=== PATIENT | male | born 1950 | race Two or more races ===

== ENCOUNTER 2019-08-25 15:01 | Inpatient (IN) | payer MEDICARE, BC ==
[~2019-08-25] VITALS: Ht 180.3 cm; Wt 84.1 kg
[2019-08-25 15:50] LABS: Basophils # (auto) 0 10 ^3/uL (0-0.2); Basophils % (auto) 0.9 % (0.0-2.0); Eosinophils # (auto) 0.2 10 ^3/uL (0-0.8); Monocytes # (auto) 0.5 10 ^3/uL (0-1.3); Platelet Count (auto) 76 10^3/uL (140-450); Red Blood Cells 2.08 10^6/uL (4.5-5.90); White Blood Cell 3.8 10^3/uL (4.4-10.8)
[2019-08-25 15:53] LABS: Eosinophils % (auto) 4.3 % (0.0-7.0); Lymphocytes % (auto) 22.5 % (10.0-50.0); Monocytes % (auto) 12.2 % (0.0-12.0); Neutrophils % (auto) 60.1 % (37.0-80.0)
[2019-08-25 15:56] LABS: Lymphocytes # (auto) 0.8 10 ^3/uL (0.4-5.4); Neutrophils # (auto) 2.3 10 ^3/uL (1.6-8.6)
[2019-08-25 15:57] LABS: Hematocrit 18.3 % (41.0-53.0); Mean Corpuscular Hemoglobin 29.9 pg (28.0-32.0)
[2019-08-25 15:58] LABS: Red Cell Distribution Width 20.8 % (11.8-14.3)
[2019-08-25 16:00] LABS: Hemoglobin 6.2 g/dL (13.5-17.5)
[2019-08-25 16:08] LABS: Albumin 2.9 g/dL (3.4-5.0); Calcium 7.5 mg/dL (8.5-10.1); Potassium 4.1 mmol/L (3.5-5.1)
[2019-08-25 16:11] LABS: Magnesium 2.7 mg/dL (1.6-2.6)
[2019-08-25 16:12] LABS: INR 1.13 (0.9-1.15); Partial Thromboplastin Time 30.5 sec (23.64-32.05)
[2019-08-25 16:15] LABS: BUN/Creatinine Ratio 25.7; Bilirubin, Total 0.5 mg/dL (0.2-1.0); Total Protein 7.3 g/dL (6.4-8.2)
[2019-08-25] MEDS ORDERED: SODIUM CHLORIDE 0.9% 3,000 ML IV ONE (16:30)
[2019-08-25] MEDS ORDERED: AZITHROMYCIN 500MG/ 250ML 250 ML IV ONE (17:00)
[2019-08-25 18:29] LABS: Lactic Acid w/Reflex 2.4 mmol/L (0.4-2.0)
[2019-08-25] MEDS ORDERED: MORPHINE SULF INJ 2 MG/ML SYRINGE 1ML IV PRN (18:45)
[2019-08-25] MEDS ORDERED: NITROGLYCERIN 0.4 MG SL TAB SL PRN (18:45)
[2019-08-25] MEDS ORDERED: levoFLOXacin 500MG 100 ML IV ONE (19:00)
[2019-08-25] MEDS ORDERED: PANTOPRAZOLE 40 MG/10 ML VIAL INJ IV ONE (19:00)
[2019-08-25] MEDS ORDERED: ONDANSETRON HCL 4 MG/2 ML VIAL IV PRN (19:00)
[2019-08-25 20:00] VITALS: BP 98/56
--- NOTE | 2019-08-25 20:09 | NUR ---
Telemetry admit from ER GUEARCHRIS NAILS admitted to Telemetry unit after SBAR received. Patient oriented to Blanca Davis, primary RN, unit, room, bed, and unit policies regarding patient care and visiting hours. Patient now on continuous telemetry monitoring, tele box # [id number] and telemetry reading on arrival to unit is SR. Patient placed on bedside oxygen, weighed by bedscale and encouraged to call if they need something. All questions and concerns addressed, patient verbalized understanding.
[2019-08-25] MEDS ORDERED: [UNRECOGNIZED DRUG - CODE] PO (21:07)
[2019-08-25] MEDS ORDERED: AMIO200T4 PO (21:07)
[2019-08-25] MEDS ORDERED: CYAN100056 PO (21:07)
[2019-08-25] MEDS ORDERED: ATO40T PO (21:07)
[2019-08-25] MEDS ORDERED: LEUP1INJ IJ (21:07)
[2019-08-25] MEDS ORDERED: INSLISPI SC (21:07)
[2019-08-25] MEDS ORDERED: PREG200C19 PO (21:07)
[2019-08-25] MEDS ORDERED: DOCU-94 PO (21:07)
[2019-08-25] MEDS ORDERED: TORS20TA20 PO (21:07)
[2019-08-25] MEDS ORDERED: IVAB1.7T PO (21:07)
[2019-08-25] MEDS ORDERED: [UNRECOGNIZED DRUG - CODE] PO (21:07)
[2019-08-25] MEDS ORDERED: CHOL20007 PO (21:07)
[2019-08-25] MEDS ORDERED: CALCTAB25 PO (21:07)
[2019-08-25] MEDS ORDERED: LIDO2SOL18 MT (21:07)
[2019-08-25] MEDS ORDERED: METO2.5T11 PO (21:07)
[2019-08-25] MEDS ORDERED: TRAM50TA2 PO (21:07)
[2019-08-25] MEDS ORDERED: PREG75CA PO (21:07)
[2019-08-25] MEDS ORDERED: DENOINJ SC (21:07)
--- NOTE | 2019-08-25 21:20 | NUR ---
IV insertion IV access obtained, via clean sterile technique by inserting 22 gauge catheter at right upper arm. IV secured properly. No trauma to site. Patient tolerated well.
[2019-08-25 22:00] VITALS: BP 98/56
[2019-08-25] MEDS: metroNIDAZOLE 500MG/100ML 100 ML IV SCH (22:00)
[2019-08-25 22:21] VITALS: BP 90/50
[2019-08-25] MEDS: SODIUM CHLORIDE 0.9% 1,000 ML IV SCH (22:36)
[2019-08-25] MEDS: traMADol HCL 50 MG TAB PO PRN (22:37)
[2019-08-25] MEDS: PANTOPRAZOLE 40 MG TAB PO SCH (22:37)
[2019-08-25 22:49] VITALS: BP 98/62
--- NOTE | 2019-08-25 22:50 | NUR ---
Blood transfusion Patient tolerating well no complaints at this time. Will continue to monitor.
[2019-08-25 23:33] VITALS: BP 104/62
[2019-08-26] VITALS (19 sets, daily range): BP systolic 86–115; BP diastolic 42–70
--- NOTE | 2019-08-26 02:12 | NUR ---
Wound picture Wound noted to right forearm, skin tear scabbed over. Old bandage removed and wound cleansed with wound cleanser, patted dry. Wound is not draining/bleeding at this time, left open to air. Wound measured at 1 cm, picture taken but wound camera had black screen.
[2019-08-26] MEDS: SODIUM CHLORIDE 0.9% 1,000 ML IV SCH ×2 (03:23→10:54)
[2019-08-26] MEDS: metroNIDAZOLE 500MG/100ML 100 ML IV SCH (05:45)
[2019-08-26] MEDS: traMADol HCL 50 MG TAB PO PRN ×2 (05:57→17:39)
[2019-08-26 06:02] LABS: Hematocrit 19.8 % (41.0-53.0); Mean Corpuscular Hemoglobin 29.3 pg (28.0-32.0); Mean Corpuscular Hgb Conc. 32.9 g/dL (32.0-36.0); Mean Corpuscular Volume 88.9 fL (80.0-100.0); Platelet Count (auto) 61 10^3/uL (140-450); Red Blood Cells 2.23 10^6/uL (4.5-5.90); White Blood Cell 4.3 10^3/uL (4.4-10.8)
--- NOTE | 2019-08-26 06:10 | NUR ---
Urine sent Urine sample given to fish farm laborer per MD order.
[2019-08-26 06:12] LABS: Red Cell Distribution Width 20.1 % (11.8-14.3)
[2019-08-26 06:14] LABS: Hemoglobin 6.5 g/dL (13.5-17.5)
[2019-08-26 06:15] LABS: Basophils % (manual) 0 (0.0-2.0); Blast Cells 0; Metamyelocytes % 0; Myelocytes % 0; Promyelocytes % 0; Reactive Lymphocytes 0
[2019-08-26 06:18] LABS: Potassium 4.3 mmol/L (3.5-5.1)
[2019-08-26 06:32] LABS: Albumin 2.7 g/dL (3.4-5.0); BUN/Creatinine Ratio 28.4; Bilirubin, Total 0.5 mg/dL (0.2-1.0); Calcium 6.8 mg/dL (8.5-10.1); Total Protein 6.6 g/dL (6.4-8.2)
--- NOTE | 2019-08-26 07:30 | NUR ---
OPENING NOTE PATIENT RECEIVING BLOOD TRANSFUSION, RUNNING AT 75ML/HR. PATIENT TOLERATING WELL AND RESTING IN BED. WILL CONTINUE TO MONITOR
[2019-08-26 07:33] LABS: Band Neutrophils % (manual) 2; Eosinophils % (manual) 4 (0-7); Lymphocytes % (manual) 26 (10.0-50.0); Monocytes % (manual) 4 (0-12)
[2019-08-26 07:36] LABS: Urine Bacteria FEW /hpf (None Seen); Urine Blood 2+ /uL (Negative); Urine Specific Gravity 1.012 (1.001-1.035); Urine WBC 45 /hpf (0 - 3)
[2019-08-26] MEDS ORDERED: levoFLOXacin 500MG 100 ML IV SCH (10:00)
[2019-08-26] MEDS: PANTOPRAZOLE 40 MG TAB PO SCH ×2 (11:00→21:45)
[2019-08-26 11:56] LABS: Hemoglobin 6.9 g/dL (13.5-17.5)
[2019-08-26] MEDS ORDERED: SODIUM CHLORIDE 0.9% 1,000 ML IV SCH (12:00)
--- NOTE | 2019-08-26 12:00 | NUR ---
PAGED DR RUELAS TO INFORM OF HGB OF 6.9
--- NOTE | 2019-08-26 12:07 | NUR ---
DR RUELAS BEDSIDE WITH PATIENT DISCUSSING PLAN OF CARE. INFORMED DR OF PATIENTS HGB LEVEL
--- NOTE | 2019-08-26 16:30 | NUR ---
Lilly catheter insertion Patient assessed and determined to be in need of Lilly catheter. Order obtained from MD. Patient educated on catheter and reason for insertion. All questions answered. Lilly catheter 14 gauge Hungarian inserted with clean sterile technique. Patient tolerated well.
[2019-08-26] MEDS: levoFLOXacin 250MG 50 ML IV SCH (17:32)
--- NOTE | 2019-08-26 19:08 | NUR ---
Opening Shift Note Assumed care of patient after receiving report from MEREDITH Dawson. Patient is awake and alert with no S/S of distress/SOB or pain. Call light within reach, bed in lowest position x2 side rails. Instructed on POC and to call for assist PRN, will continue to monitor for changes Q1hr and PRN.
[2019-08-27 05:28] VITALS: BP 109/63
[2019-08-27 06:09] LABS: Hemoglobin 8.2 g/dL (13.5-17.5)
[2019-08-27 06:16] LABS: Hematocrit 24.1 % (41.0-53.0); Mean Corpuscular Hemoglobin 30.4 pg (28.0-32.0); Mean Corpuscular Volume 89.4 fL (80.0-100.0); Platelet Count (auto) 69 10^3/uL (140-450); Red Cell Distribution Width 19.7 % (11.8-14.3); White Blood Cell 4.9 10^3/uL (4.4-10.8)
[2019-08-27 06:25] LABS: BUN/Creatinine Ratio 27.8; Calcium 6.5 mg/dL (8.5-10.1); Potassium 3.8 mmol/L (3.5-5.1)
[2019-08-27 06:37] LABS: Band Neutrophils % (manual) 0; Basophils % (manual) 0 (0.0-2.0); Blast Cells 0; Metamyelocytes % 0; Myelocytes % 0; Promyelocytes % 0
[2019-08-27 07:23] LABS: Eosinophils % (manual) 2 (0-7); Lymphocytes % (manual) 13 (10.0-50.0); Monocytes % (manual) 8 (0-12); Reactive Lymphocytes 2
--- NOTE | 2019-08-27 07:28 | NUR ---
Critical Critical BUN received from MD cam aware of trending down.
--- NOTE | 2019-08-27 08:00 | NUR ---
REQUEST FOR RELEASE OF MEDICAL RECORDS FROM [facility] FAXED OVER
--- NOTE | 2019-08-27 08:09 | NUR ---
RECEIVED ORDER FROM DR RUELAS FOR A ONE TIME ORDER OF LASIX FOR PATIENTS RENAL SCAN. PLACED ORDER RECEIVED.
[2019-08-27] MEDS ORDERED: FUROSEMIDE 40 MG/4 ML VIAL IV ONE (08:15)
[2019-08-27 09:00] VITALS: BP 109/67
[2019-08-27] MEDS: PANTOPRAZOLE 40 MG TAB PO SCH ×2 (10:07→21:20)
[2019-08-27] MEDS: traMADol HCL 50 MG TAB PO PRN ×2 (11:39→17:36)
--- NOTE | 2019-08-27 11:45 | NUR ---
DR RUELAS BEDSIDE WITH PATIENT DISCUSSING PLAN OF CARE
[2019-08-27 13:00] VITALS: BP 106/58
--- NOTE | 2019-08-27 13:29 | NUR ---
Assessment Patient is a 69-year-old male who is alert and oriented. Prior to admission patient lived home with his and functioned with assistance. Patient informed me his help him with his ADLs. Patient has a cane and walker for home use. Patient informed me is on service with [facility] but would like to receive home health service for physical therapy at home. Advised patient there is a social service consult for physical therapy. Informed patient I will inform RN regarding home health order. Information and choice letter was given to patient. Patient requested [facility] home health. Informed patient clinical information will be faxed to agency. Informed patient he has a right to participate in all discharge planning. Patient verbalized understanding and agreed to discharge plan home. Informed MEREDITH Dawson regarding order for home health physical therapy. Advising her patient requested [facility] health. Per MEREDITH Dawson she will notify provider. Faxed clinicals to [facility]. Per Ganga with [facility] Ph:) patient has been accepted and service to start within 24-48hrs upon d/c day. Addendum: 08/27/19 at 1332 by PUNEET HENDERSON Amended: Links added.
[2019-08-27] MEDS: ACETAMINOPHEN 500 MG TAB PO PRN ×2 (13:52→22:13)
--- NOTE | 2019-08-27 14:25 | NUR ---
DR TINEO BEDSIDE WITH PATIENT DISCUSSING PLAN OF CARE
--- NOTE | 2019-08-27 15:57 | NUR ---
RECEIVED CALL FROM PUNEET IN TO ORDER ABG FOR HOME 02. ORDER PLACED
--- NOTE | 2019-08-27 16:05 | NUR ---
D/C Planning Per SS consult for home oxygen at 2 l/min 31/10. Advised MEREDITH Dawson an ABG order is needed to proceed with home O2 order.
--- NOTE | 2019-08-27 16:22 | NUR ---
CANCELLED ORDER FOR ABG, PATIENT ALREADY HAS O2 AT HOME
--- NOTE | 2019-08-27 16:30 | NUR ---
PLACED OPTIFOAMS AND ZGUARD ON PATIENTS BOTTOM. PATIENT STATED HE HAS BEEN ITCHING AND NOW HAS SCRATCH SEARS.
[2019-08-27 16:43] VITALS: BP 99/63
--- NOTE | 2019-08-27 17:13 | NUR ---
PLACED ANOTHER ORDER FOR ABG. PATIENT CURRENTLY HAS 02 THROUGH HOSPICE, WHICH WILL BE CANCELLED SINCE PATIENT WILL BE D/C'D ON HOME HEALTH, A NEW ABG IS REQUIRED TO QUALIFY.
[2019-08-27] MEDS: levoFLOXacin 250MG 50 ML IV SCH (17:35)
--- NOTE | 2019-08-27 19:20 | NUR ---
Opening note Assumed care of patient. Patient alert and orientated x4. No SOB or distress noted. Bed in lowest position and locked. Side rails up x2. POC discussed. Call light within reach. Will continue to monitor.
--- NOTE | 2019-08-27 21:44 | NUR ---
CHANGE IN MENTATION. HOSPITALIST TO BE CONTACTED PATIENT APPEARS MORE LETHARGIC THAN START OF SHIFT. PATIENT APPEARS INCREASED CONFUSION WELL. VITALS STABLE AT THIS TIME. WILL CONTACT HOSPITALIST FOR ORDERS. WILL AWAIT CALL BACK OR ORDERS PLACED.
--- NOTE | 2019-08-27 22:05 | NUR ---
HOSPITALIST CONTACTED ORDERS RECEIVED. LABS TO BE DRAWN. WILL AWAIT RESULTS
--- NOTE | 2019-08-27 22:22 | NUR ---
PT'S TEMP AT 99.9 PATIENT SHOWING ACUTE CONFUSION. PATIENT PLACED ON COOLING MEASURES. WILL CONTINUE TO MONITOR. Addendum: 08/27/19 at 2223 by JUAN RAMON ZAMORA RN PT APPEARS TO BE MORE ALERT. PT STILL SHOWS ACUTE CONFUSION BUT ABLE TO ANSWER NAME AND DATE OF . WILL CONTINUE TO MONITOR.
[2019-08-27 22:34] LABS: White Blood Cell 4.3 10^3/uL (4.4-10.8)
[2019-08-27 22:36] VITALS: BP 101/60
[2019-08-27 22:37] LABS: Hematocrit 24.8 % (41.0-53.0); Hemoglobin 8.2 g/dL (13.5-17.5); Mean Corpuscular Hemoglobin 29.8 pg (28.0-32.0); Mean Corpuscular Hgb Conc. 32.9 g/dL (32.0-36.0); Mean Corpuscular Volume 90.6 fL (80.0-100.0); Platelet Count (auto) 69 10^3/uL (140-450); Red Blood Cells 2.74 10^6/uL (4.5-5.90)
[2019-08-27 22:44] LABS: Red Cell Distribution Width 20.2 % (11.8-14.3)
[2019-08-27 22:45] LABS: Basophils % (manual) 0 (0.0-2.0); Blast Cells 0; Myelocytes % 0; Promyelocytes % 0
[2019-08-27 23:05] LABS: Albumin 2.6 g/dL (3.4-5.0); Anion Gap 10 (5-15); Blood Urea Nitrogen 72 mg/dL (7-18); Calcium 6.7 mg/dL (8.5-10.1); Carbon Dioxide 22 mmol/L (21-32); Chloride 102 mmol/L (98-107); Glucose 120 mg/dL (74-106); Potassium 4.1 mmol/L (3.5-5.1); Sodium 134 mmol/L (136-145)
[2019-08-27 23:07] LABS: Aspartate Aminotransferase 99 U/L (15-37); BUN/Creatinine Ratio 24.7; GFR African American 28 mL/min; GFR Non-African American 23 mL/min
[2019-08-27 23:11] LABS: Alanine Aminotransferase 23 U/L (16-61); Alkaline Phosphatase 479 U/L (45-117); Bilirubin, Total 0.5 mg/dL (0.2-1.0); Total Protein 6.9 g/dL (6.4-8.2)
[2019-08-27 23:19] LABS: Band Neutrophils % (manual) 3
[2019-08-27 23:20] LABS: Eosinophils % (manual) 3 (0-7); Lymphocytes % (manual) 18 (10.0-50.0); Metamyelocytes % 2; Monocytes % (manual) 8 (0-12); Reactive Lymphocytes 1
--- NOTE | 2019-08-28 05:00 | NUR ---
Patient is alert and orientated x4. Temp is 97.7. No SOB or distress noted at this time. Will continue to monitor.
[2019-08-28 05:45] VITALS: BP 109/68
[2019-08-28 05:57] LABS: BUN/Creatinine Ratio 24.6; Calcium 6.6 mg/dL (8.5-10.1); Potassium 3.8 mmol/L (3.5-5.1)
--- NOTE | 2019-08-28 07:15 | NUR ---
Opening Shift Note Assumed care of patient, awake and alert. No S/S of distress/SOB, remains on O2, denies pain. Instructed on POC and to call for assist PRN, will continue to monitor for changes Q1hr and PRN.
[2019-08-28 09:00] VITALS: BP 112/70
[2019-08-28] MEDS: PANTOPRAZOLE 40 MG TAB PO SCH (10:35)
[2019-08-28] MEDS ORDERED: FURO20TA3 PO ×2 (10:38→10:42)
[2019-08-28 13:00] VITALS: BP 114/65
[2019-08-28 13:04] VITALS: BP 112/70
--- NOTE | 2019-08-28 13:30 | NUR ---
D/C planning Per consult for home O2 at 2 l/min. Faxed clinical information to [facility]. Per Katrina with [facility] portable oxygen will be deliver to bedside between 11:00-13:00 and concentrate oxygen to home.
--- NOTE | 2019-08-28 16:32 | NUR ---
Discharge instructions given as ordered. Encourage to follow up with PMD as instructed. All questions and concerns addressed. Patient verbalized understanding. Medication reconciliation form completed and copy given to patient.prescription called in to anneliese. . IV removed with catheter intact, pressure dressing applied, bryant catheter to remain, leg bag given. Telemetry unit returned to ICU. Patient taken to vehicle via private transportation company with all personal belongings, accompanied by staff and family member. No distress noted at time of departure.
== END 2019-08-28 16:40 | disposition home health service (06) | DRG 808 ==
LOC: ER 15:01 → EDBD 15:01 → TELE 15:02 → TELE-WESTW 19:13
PROVIDERS: ADMIT Internal Medicine; ATTEND Internal Medicine
PROC: 30233N1 Transfusion of Nonautologous Red Blood Cells into Peripheral Vein, Percutaneous Approach (ICD-10-PCS; principal; 2019-08-25)
DX: D61.818 Other pancytopenia (principal); J96.20 Acute and chronic respiratory failure, unspecified whether with hypoxia or hypercapnia; N17.0 Acute kidney failure with tubular necrosis; C79.51 Secondary malignant neoplasm of bone; E87.1 Hypo-osmolality and hyponatremia; I50.42 Chronic combined systolic (congestive) and diastolic (congestive) heart failure; N13.30 Unspecified hydronephrosis; I11.0 Hypertensive heart disease with heart failure; C61 Malignant neoplasm of prostate; G62.9 Polyneuropathy, unspecified; E86.0 Dehydration; Z66 Do not resuscitate; N26.1 Atrophy of kidney (terminal); I95.9 Hypotension, unspecified; E88.09 Other disorders of plasma-protein metabolism, not elsewhere classified; Z85.46 Personal history of malignant neoplasm of prostate; Z88.0 Allergy status to penicillin; Z88.1 Allergy status to other antibiotic agents; Z79.899 Other long term (current) drug therapy; Z82.49 Family history of ischemic heart disease and other diseases of the circulatory system; Z83.3 Family history of diabetes mellitus; Z80.41 Family history of malignant neoplasm of ovary; Z80.1 Family history of malignant neoplasm of trachea, bronchus and lung
CPT/HCPCS: 36415; 36600; 71045; 74176; 76775; 78707; 80048; 80053; 81001; 82140; 82805; 83605; 83735; 83880; 84484; 85007; 85014; 85018; 85025; 85027; 85045; 85610; 85730; 86850; 86900; 86901; 86920; 87040; 87081; 87086; 93005; 93971; 96365; 97163; 99291; G0378; J1956; J3490